=== PATIENT | female | born 1995 | race Caucasian/White ===

== ENCOUNTER 2020-02-21 18:37 | Inpatient (IN) | payer BC ==
[2020-02-21] MEDS ORDERED: DINOPROSTONE 10 MG VAGINAL INSERT.SR PV PRN (18:59)
[2020-02-21] MEDS ORDERED: RINGERS SOLUTION,LACTATED 1,000 ML IV PRN (18:59)
--- NOTE | 2020-02-21 19:15 | Admission Physical ---
Datetime Report Generated by CPN: 02/21/2020 19:15 CURRENT ADMISSION Chief Complaint: Scheduled Induction of Labor Indication for Induction: Post Dates Admit Impression : Postterm, Intrauterine ; Intact Membranes; Induction of Labor Admit Plan: Admit to Unit; Initiate Labor Induction Protocol ALLERGIES Medication Allergies: No Medication Allergies: No Known Allergies (08/05/2019) OBSTETRICAL HISTORY EDC: 02/15/2020 00:00 : 1 Para: 0 Term: 0 : 0 SAB: 0 IAB: 0 Ectopic: 0 Livin Cesareans: 0 VBACs: 0 Multiple Births: 0 Infertility: Yes Current Procedures: Ultrasound; NST Obstetrical History Comments: G1: current MEDICAL HISTORY Hosp/Surgery: Yes Medical History Comments: tachycardia x 6yrs, cholecystectomy, bilateral myringotomy with tubes, tear ducts, tonsillectomy PHYSICAL EXAM General: Normal HEENT: Normal Neurologic: Normal Thyroid: Normal Heart: Normal Lungs: Normal Breast: Deferred Back: Normal Abdomen: Normal Genitourinary Exam: Normal Extremities: Normal DTRs: Normal Pelvic Type: Adequate Vital Signs: Reviewed VAGINAL EXAM Dilatation: 1 Effacement: 0 Station: -2 MEMBRANES Pooling: Negative Membranes: Intact FETUS A EGA: 40.6 Monitoring: External US Presentation: Vertex INFORMED CONSENT Signature: with User ID: [email or web address]
[2020-02-21] MEDS ORDERED: RINGERS SOLUTION,LACTATED 1,000 ML IV ONE (19:30)
[2020-02-21] MEDS ORDERED: DINOPROSTONE 10 MG VAGINAL INSERT.SR ONE ×2 (20:05→22:48)
[2020-02-21 20:09] LABS: ABSOLUTE BASOPHILS # (AUTO) 0.1 10^3/uL (0.0-0.2); ABSOLUTE LYMPHOCYTES (AUTO) 2.4 10^3/uL (0.5-4.7); ABSOLUTE MONOCYTES (AUTO) 0.5 10^3/uL (0.1-1.4); ABSOLUTE NEUT (AUTO) 7.8 10^3/uL (1.7-8.2); BASOPHILS % (AUTO) 0.5 % (0-2); EOSINOPHILS % (AUTO) 0.4 % (0-6); HEMATOCRIT 37.3 % (36.0-47.0); HEMOGLOBIN 12.8 g/dL (12.0-15.5); LYMPHOCYTES % (AUTO) 21.9 % (13-45); MEAN CORPUSCULAR HEMOGLOBIN 31.7 pg (27.0-33.4); MEAN CORPUSCULAR HGB CONC 34.4 g/dL (32.0-36.0); MEAN CORPUSCULAR VOLUME 92 fl (80-97); MONOCYTES % (AUTO) 5.1 % (3-13); PLATELET COUNT 144 10^3/uL (150-450); RED BLOOD COUNT 4.05 10^6/uL (3.72-5.28); RED CELL DISTRIBUTION WIDTH 15.2 % (11.5-14.0); SEGMENTED NEUTROPHILS % (AUTO) 72.1 % (42-78); TOTAL CELLS COUNTED % (AUTO) 100 %; WHITE BLOOD COUNT 10.8 10^3/uL (4.0-10.5)
[2020-02-21 20:13] LABS: APPEARANCE,URINE SLIGHTLY-CLOUDY; BILIRUBIN,URINE NEGATIVE (NEGATIVE); COLOR,URINE YELLOW; GLUCOSE, URINE NEGATIVE (NEGATIVE); KETONES,URINE NEGATIVE (NEGATIVE); LEUKOCYTE ESTERASE,URINE TRACE (NEGATIVE); NITRITE,URINE NEGATIVE (NEGATIVE); PROTEIN,URINE 30 mg/dL (NEGATIVE); URINE SPECIFIC GRAVITY 1.013; UROBILINOGEN,URINE NEGATIVE mg/dL (<2.0)
[2020-02-21 20:27] LABS: URINE AMPHETAMINES SCREEN NEGATIVE; URINE BARBITURATES SCREEN NEGATIVE; URINE BENZODIAZEPINES SCREEN NEGATIVE; URINE COCAINE SCREEN NEGATIVE; URINE MARIJUANA (THC) SCREEN NEGATIVE; URINE METHADONE SCREEN NEGATIVE; URINE PHENCYCLIDINE SCREEN NEGATIVE
[2020-02-21] MEDS ORDERED: ZOLPIDEM TARTRATE 5 MG TABLET ONE (23:05)
[2020-02-21] MEDS ORDERED: DINOPROSTONE 10 MG VAGINAL INSERT.SR PV ONE (23:30)
[2020-02-21] MEDS ORDERED: ZOLPIDEM TARTRATE 5 MG TABLET PO ONE (23:30)
[2020-02-22] MEDS ORDERED: OXYTOCIN/0.9 % SODIUM CHLORIDE 30 UNIT/500 ML RTUINJ ONE (10:02)
[2020-02-22] MEDS ORDERED: LIDOCAINE 1% INJ-PF (10 MG/ML) 30 ML SDV ONE (10:02)
[2020-02-22] MEDS ORDERED: OXYTOCIN 10 UNIT/ML VIAL ONE (10:02)
[2020-02-22] MEDS ORDERED: MISOPROSTOL 0.2 MG TABLET ONE (10:02)
[2020-02-22] MEDS ORDERED: OXYTOCIN/0.9 % SODIUM CHLORIDE 30 UNIT/500 ML RTUINJ IV PRN (10:30)
[2020-02-22] MEDS ORDERED: MAG HYDROX/AL HYDROX/SIMETH SUSP 30 ML UDCUP PO ONE (13:07)
[2020-02-22] MEDS ORDERED: MAG HYDROX/AL HYDROX/SIMETH SUSP 30 ML UDCUP ONE (13:09)
[2020-02-22] MEDS ORDERED: ONDANSETRON HCL INJ/PF 4 MG/2 ML SDV ONE (16:25)
[2020-02-22] MEDS ORDERED: ONDANSETRON HCL INJ/PF 4 MG/2 ML SDV IV ONE (16:25)
[2020-02-22] MEDS ORDERED: EPHEDRINE SULFATE INJ 50 MG/1 ML AMPULE ONE (17:23)
[2020-02-22] MEDS ORDERED: FENTANYL/BUPIVACAINE/NS/PF 300 MCG/150 ML RTUINJ EPI ONE (17:23)
[2020-02-22] MEDS ORDERED: BUPIVACAINE HCL 0.25 % INJ/PF (2.5 MG/1 ML) 30 ML VIAL ONE (17:23)
[2020-02-22] MEDS ORDERED: PROMETHAZINE HCL INJ 25 MG/1 ML VIAL ONE (22:56)
[2020-02-22] MEDS ORDERED: NALBUPHINE HCL INJ 10 MG/1 ML AMPULE ONE (22:57)
[2020-02-23] MEDS ORDERED: PROMETHAZINE HCL 25 MG SUPP.RECT PR PRN (03:18)
[2020-02-23] MEDS ORDERED: DIBUCAINE 1% OINTMENT 28 GM TP PRN (03:18)
[2020-02-23] MEDS ORDERED: OXYTOCIN/0.9 % SODIUM CHLORIDE 30 UNIT/500 ML RTUINJ IV PRN (03:18)
[2020-02-23] MEDS ORDERED: GLYCERIN/WITCH HAZEL LEAF 1 EACH MED..WIPE TP PRN (03:18)
[2020-02-23] MEDS ORDERED: MAGNESIUM HYDROXIDE SUSP 30 ML UDCUP PO PRN (03:18)
[2020-02-23] MEDS ORDERED: NA PHOS,M-B/NA PHOS,DI-BA (ADULT) 133 ML ENEMA PR PRN (03:18)
[2020-02-23] MEDS ORDERED: PROMETHAZINE HCL 25 MG TABLET PO PRN (03:18)
[2020-02-23] MEDS ORDERED: DIPHENHYDRAMINE HCL 25 MG CAPSULE PO PRN (03:18)
[2020-02-23] MEDS ORDERED: ZOLPIDEM TARTRATE 5 MG TABLET PO PRN (03:18)
[2020-02-23] MEDS ORDERED: MEASLES,MUMPS&RUBELLA VACC/PF 0.5 ML VIAL SUBCUT PRN (03:18)
[2020-02-23] MEDS ORDERED: PSEUDOEPHEDRINE HCL 30 MG TABLET PO PRN (03:18)
[2020-02-23] MEDS ORDERED: DIPH/PERTUSS(ACELL)/TETANUS VAC/PF 0.5 ML SYR (>=10YO) IM PRN (03:18)
[2020-02-23] MEDS ORDERED: ACETAMINOPHEN WITH CODEINE #3 TABLET PO PRN ×2 (03:18)
[2020-02-23] MEDS ORDERED: ACETAMINOPHEN 650 MG SUPP.RECT PR PRN (03:18)
[2020-02-23] MEDS ORDERED: BENZOCAINE/MENTHOL AEROSOL SPRAY 56 ML TOP PRN (03:18)
[2020-02-23] MEDS ORDERED: PROMETHAZINE HCL INJ 25 MG/1 ML VIAL IV PRN (03:18)
[2020-02-23] MEDS ORDERED: AMPICILLIN SOD/SULBACTAM 3 GM VIAL IV SCH (03:30)
[2020-02-23] MEDS ORDERED: ACETAMINOPHEN 325 MG TABLET ONE (03:45)
[2020-02-23] MEDS ORDERED: AMPICILLIN SOD/SULBACTAM 3 GM VIAL ONE (03:56)
--- NOTE | 2020-02-23 04:56 | Warning Signs in Babies ---
VOD Warning Signs Datetime Report Generated by [facility]: 02/23/2020 04:56 VOD#[id number] -Warning Signs in Babies: Viewed with Parent(s)/Family (02/21/2020 16:53:Priyanka Resendez RN)
--- NOTE | 2020-02-23 04:57 | Delivery Summary ---
Del Sum A-C Datetime Report Generated by CPN: 02/23/2020 04:57 DELIVERY PERSONNEL DELIVERY PERSONNEL: [id number] Delivery Doctor:: Serene Madrid MD Labor and Delivery Nurse:: Priyanka Resendez RNdistrict engineer Nurse:: Sultana Bond, RNC MATERNAL INFORMATION Delivery Anesthesia: Epidural Medications After Delivery: Pitocin Bolus-Please Comment; Pitocin 30 Units in 500ml NS/D5W Estimated Blood Loss (ml): 200 Maternal Complications: Maternal Fever; Prolonged Second Stage > 2 Hrs Provider Comments: called to pts bedside due to prolonged decel x 8 mintues. pt placed in hands and knees with good recovery. pt repositioned for vacuum placement and delivery facilitated with two applications with one pop off. Delivery accomplished within 15 min of provider arrival. tight nuchal cord noted. infant passed to nursery staff for resuscitation procedures. LABOR SUMMARY EDC: 02/15/2020 00:00 No. Babies in Womb: 1 Attempted: No Labor Anesthesia: Epidural LABOR INFORMATION Reason for Induction: Post Dates Onset of Labor: 02/22/2020 18:23 Complete Dilatation: 02/22/2020 23:37 Cervical Ripening Agents: Cervidil Oxytocin: Induction Group B Beta Strep: negative Antibiotics # of Doses: 0 Steroids Given: None Reason Steroids Not Administered: Not Applicable MEMBRANES Membranes Rupture Method: Artificial Rupture of Membranes: 02/22/2020 10:28 Length of Rupture (hr): 16.52 Amniotic Fluid Color: Clear Amniotic Fluid Amount: Scant Amniotic Fluid Odor: Normal STAGES OF LABOR Stage 1 hr: 5 Stage 1 min: 14 Stage 2 hr: 3 Stage 2 min: 22 Stage 3 hr: 0 Stage 3 min: 2 Total Time in Labor hr: 8 Total Time in Labor min: 38 VAGINAL DELIVERY Episiotomy: None Laceration #1: None Laceration Extension #1: N/A Laceration Repair: Not Applicable Sponge Count Correct: Vaginal Sweep Performed Sharps Count Correct: Yes CSECTION DELIVERY Primary Indication: N/A Secondary Indication: N/A CSection Incidence: N/A Labor: N/A Elective: N/A CSection Incision: N/A BABY A INFORMATION Infant Delivery Date/Time: 02/23/2020 02:59 Method of Delivery: Vaginal Nurse Controlled Delivery: No Born in Route : No : N/A Forceps: N/A Vacuum Extraction: Successful Shoulder Dystocia : No PRESENTATION/POSITION BABY A Presentation: Cephalic Cephalic Presentation: Vertex Vertex Position: Left Occipital Anterior Breech Presentation: N/A PLACENTA INFORMATION BABY A Placenta Delivery Time : 02/23/2020 03:01 Placenta Method of Delivery: Spontaneous Placenta Status: Delivered SCORES BABY A Heart Rate 1 min: >100 bpm Resp Effort 1 min: Absent Reflex Irritability 1 min: No Response Muscle Tone 1 min: Flaccid Color 1 min: Blue/Pale Resuscitation Effort 1 min: Tactile Stimulation; Oxygen; PPV/NCPAP SCORE 1 MIN: 2 Heart Rate 5 min: >100 bpm Resp Effort 5 min: Slow, Irregular Reflex Irritability 5 min: Grimace Muscle Tone 5 min: Flaccid Color 5 min: Body [place], Extremities Blue Resuscitation Effort 5 min: Oxygen; PPV/NCPAP SCORE 5 MIN: 5 Heart Rate 10 min: >100 bpm Resp Effort 10 min: Slow, Irregular Reflex Irritability 10 min: Cough or Sneeze or Pulls Away Muscle Tone 10 min: Some Flexion of Extremities Color 10 min: Completely [place] SCORE 10 MIN: 8 INFANT INFORMATION BABY A Gestational Age at Delivery: 41.1 Gestational Status: Late Term- 41- 41.6 Weeks Infant Outcome : Liveborn Infant Condition : Fair Sex: Female IDENTIFICATION BABY A Infant Verification Date/Time: 02/23/2020 03:14 ID Band Number: [id number] Mother's Name Verified: Yes RN Verifying : D Bellavance RN/Kaitlynn Jaeger BUSINESS OPERATIONS ANALYST WEIGHT/LENGTH BABY A Birthweight (gm): 2651 Weight (lb): 5 Weight (oz): 14 Length (in): 19.75 Infant Length (cm): 50.17 CORD INFORMATION BABY A No. Cord Vessels: 3 Nuchal Cord : Around Neck x1, Loose Cord Blood Taken: Yes-For Eval (Mom's Blood Type - or O+) Suction: Mouth; Nose ASSESSMENT BABY A Skin to Skin: No BABY B INFORMATION : N/A SIGNATURES Signature: with User ID: [email or web address]
[2020-02-23] MEDS: IBUPROFEN 800 MG TABLET PO SCH ×3 (06:32→21:33)
[2020-02-23] MEDS: PRENATAL VITAMIN W DHA CAPSULE PO SCH (09:17)
[2020-02-23] MEDS: DOCUSATE SODIUM 100 MG CAPSULE PO SCH ×2 (09:17→17:48)
[2020-02-23] MEDS: FAMOTIDINE 20 MG TABLET PO SCH ×2 (09:17→21:33)
[2020-02-23] MEDS: SENNOSIDES/DOCUSATE 8.6-50 MG 1 EACH TABLET PO SCH (09:17)
[2020-02-23] MEDS: FERROUS SULFATE 325 MG TABLET PO SCH ×2 (09:17→17:47)
--- NOTE | 2020-02-23 10:38 | PDOC PROGRESS REPORT ---
Subjective-OB Progress Note for:: 02/23/20 Physical Exam (OB) Vital Signs: Temp Pulse Resp BP Pulse Ox 97.5 F 82 16 126/65 H 100 02/23/20 10:06 02/23/20 10:06 02/23/20 10:06 02/23/20 10:06 02/23/20 10:06 Intake & Output 02/22/20 02/23/20 02/24/20 06:59 06:59 06:59 Intake Total 600 Balance 600 Weight 81.5 kg - PIH/Pre-Eclampsia DTR's: 2 + Clonus: Negative Headache: Absent Epigastric Pain: No Visual Changes: No - Lochia Lochia Amount: Moderate 25-50 ml Lochia Color: Rubra/Red - Abdomen Description: Soft Hernia Present: No Bowel Sounds: Normoactive Flatus Presence: Present Stool: No Fundal Description: Firm, Midline Fundal Height: u/u - u/2 Objective-Diagnostic Laboratory: 02/21/20 20:00
[2020-02-24] MEDS: IBUPROFEN 800 MG TABLET PO SCH (05:04)
[2020-02-24 07:00] LABS: HEMATOCRIT 31.8 % (36.0-47.0); HEMOGLOBIN 10.9 g/dL (12.0-15.5); MEAN CORPUSCULAR HEMOGLOBIN 31.8 pg (27.0-33.4); MEAN CORPUSCULAR HGB CONC 34.2 g/dL (32.0-36.0); MEAN CORPUSCULAR VOLUME 93 fl (80-97); PLATELET COUNT 111 10^3/uL (150-450); RED BLOOD COUNT 3.42 10^6/uL (3.72-5.28); RED CELL DISTRIBUTION WIDTH 16.1 % (11.5-14.0); WHITE BLOOD COUNT 13.5 10^3/uL (4.0-10.5)
[2020-02-24 07:59] VITALS: BP 107/68
--- NOTE | 2020-02-24 09:27 | PDOC DISCHARGE SUMMARY ---
Impression - Admit/DC Date/PCP Admission Date/Primary Care Provider: 02/21/20 18:37 Discharge Date: 02/24/20 - Discharge Diagnosis (1) Normal course Is this a current diagnosis for this admission?: Yes (2) Gestational thrombocytopenia without hemorrhage Is this a current diagnosis for this admission?: Yes (3) Is this a current diagnosis for this admission?: Yes (4) Vacuum extraction, delivered, current hospitalization Is this a current diagnosis for this admission?: Yes - Additional Information Resuscitation Status: Full Code Discharge Diet: Regular Discharge Activity: Activity As Tolerated, Pelvic Rest, No tub bath [facility] (Please call A for a 4 week F/U.) Prescriptions: Ibuprofen [Motrin 800 mg Tablet] 800 mg PO Q8HP PRN #60 tablet PRN Reason: Home Medications: Vit No.124/Iron/Folic [ Vitamin Tablet] 1 tab PO DAILY 08/05/19 Promethazine HCl [Phenergan 25 mg Tablet] 25 - 50 mg PO ASDIR PRN 08/05/19 Ibuprofen [Motrin 800 mg Tablet] 800 mg PO Q8HP PRN #60 tablet 02/24/20 HPI Gestational Age: 41.1 Reason(s) for Admission: Induction of Labor Procedures: NST Intrapartum Procedure(s): Vacuum Extraction Complication(s): Laceration-Vaginal Laceration-Degree: 2nd Results Laboratory Results: WBC 13.5 10^3/uL (4.0-10.5) H 02/24/20 06:36 RBC 3.42 10^6/uL (3.72-5.28) L 02/24/20 06:36 Hgb 10.9 g/dL (12.0-15.5) L 02/24/20 06:36 Hct 31.8 % (36.0-47.0) L 02/24/20 06:36 MCV 93 fl (80-97) 02/24/20 06:36 MCH 31.8 pg (27.0-33.4) 02/24/20 06:36 MCHC 34.2 g/dL (32.0-36.0) 02/24/20 06:36 RDW 16.1 % (11.5-14.0) H 02/24/20 06:36 Plt Count 111 10^3/uL (150-450) L 02/24/20 06:36 Lymph % (Auto) 21.9 % (13-45) 02/21/20 20:00 [place] % (Auto) 5.1 % (3-13) 02/21/20 20:00 Eos % (Auto) 0.4 % (0-6) 02/21/20 20:00 Baso % (Auto) 0.5 % (0-2) 02/21/20 20:00 Absolute Neuts (auto) 7.8 10^3/uL (1.7-8.2) 02/21/20 20:00 Absolute Lymphs (auto) 2.4 10^3/uL (0.5-4.7) 02/21/20 20:00 Absolute Monos (auto) 0.5 10^3/uL (0.1-1.4) 02/21/20 20:00 Absolute Eos (auto) 0.0 10^3/uL (0.0-0.6) 02/21/20 20:00 Absolute Basos (auto) 0.1 10^3/uL (0.0-0.2) 02/21/20 20:00 Seg Neutrophils % 72.1 % (42-78) 02/21/20 20:00 Urine Color YELLOW 02/21/20 19:15 Urine Appearance SLIGHTLY-CLOUDY 02/21/20 19:15 Urine pH 6.0 (5.0-9.0) 02/21/20 19:15 Ur Specific [place] 1.013 02/21/20 19:15 Urine Protein 30 mg/dL (NEGATIVE) H 02/21/20 19:15 Urine Glucose (UA) NEGATIVE mg/dL (NEGATIVE) 02/21/20 19:15 Urine Ketones NEGATIVE mg/dL (NEGATIVE) 02/21/20 19:15 Urine Blood SMALL (NEGATIVE) H 02/21/20 19:15 Urine Nitrite NEGATIVE (NEGATIVE) 02/21/20 19:15 Urine Bilirubin NEGATIVE (NEGATIVE) 02/21/20 19:15 Urine Urobilinogen NEGATIVE mg/dL (<2.0) 02/21/20 19:15 Ur Leukocyte Esterase TRACE (NEGATIVE) H 02/21/20 19:15 Urine Ascorbic Acid NEGATIVE (NEGATIVE) 02/21/20 19:15 Urine Opiates Screen NEGATIVE 02/21/20 19:15 Urine Methadone Screen NEGATIVE 02/21/20 19:15 Ur Barbiturates Screen NEGATIVE 02/21/20 19:15 Ur Phencyclidine Scrn NEGATIVE 02/21/20 19:15 Ur Amphetamines Screen NEGATIVE 02/21/20 19:15 U Benzodiazepines Scrn NEGATIVE 02/21/20 19:15 Urine Cocaine Screen NEGATIVE 02/21/20 19:15 U Marijuana (THC) Screen NEGATIVE 02/21/20 19:15 RPR NONREACTIVE (NONREACTIVE) 02/21/20 20:00 SARS-CoV-2 (PCR) NEGATIVE (NEGATIVE) 02/23/20 06:50 Blood Type O POSITIVE 02/21/20 20:00 Antibody Screen NEGATIVE 02/21/20 20:00 Plan Health Concerns: baby sent to [facility] Plan of Treatment: discharge, pt wants to go to [facility] to be with baby Time Spent: Less than 30 Minutes
[2020-02-24] MEDS: SENNOSIDES/DOCUSATE 8.6-50 MG 1 EACH TABLET PO SCH (09:39)
[2020-02-24] MEDS: DOCUSATE SODIUM 100 MG CAPSULE PO SCH (09:39)
[2020-02-24] MEDS: PRENATAL VITAMIN W DHA CAPSULE PO SCH (09:39)
[2020-02-24] MEDS: FAMOTIDINE 20 MG TABLET PO SCH (09:39)
[2020-02-24] MEDS: FERROUS SULFATE 325 MG TABLET PO SCH (09:39)
== END 2020-02-24 11:40 | disposition home or self-care (01) | DRG 806 ==
LOC: LR 18:37 → 2S 02-23 05:55 → MERGE 03-08 16:03
PROVIDERS: ADMIT Obstetrics & Gynecology Gynecology; ATTEND Obstetrics & Gynecology Gynecology
PROC: 10D07Z6 Extraction of Products of Conception, Vacuum, Via Natural or Artificial Opening (ICD-10-PCS; principal; 2020-02-21)
PROC: 0KQM0ZZ Repair Perineum Muscle, Open Approach (ICD-10-PCS; 2020-02-21)
PROC: 3E033VJ Introduction of Other Hormone into Peripheral Vein, Percutaneous Approach (ICD-10-PCS; 2020-02-21)
DX: O48.0 Post-term pregnancy (principal); O99.12 Other diseases of the blood and blood-forming organs and certain disorders involving the immune mechanism complicating childbirth; Z37.0 Single live birth; O75.2 Pyrexia during labor, not elsewhere classified; D69.6 Thrombocytopenia, unspecified; O70.1 Second degree perineal laceration during delivery; O69.81X0 Labor and delivery complicated by cord around neck, without compression, not applicable or unspecified; Z3A.41 41 weeks gestation of pregnancy
CPT/HCPCS: 1967; 36415; 80307; 81005; 85025; 85027; 86592; 86850; 86900; 86901; 87635; 99465; C9803; J0295; J2300; J2405; J2550; J2590; J3010; J3490

== ENCOUNTER 2020-05-15 18:30 | Emergency (ER) | payer BC ==
[2020-05-15] MEDS ORDERED: ONDANSETRON HCL INJ/PF 4 MG/2 ML SDV IV ONE (19:23)
[2020-05-15] MEDS ORDERED: NORMAL SALINE 1000 ML 1,000 ML IV ONE (19:23)
--- NOTE | 2020-05-15 19:25 | ER Document Report ---
ED Medical Screen (RME) - General Chief Complaint: Nausea/Vomiting Stated Complaint: NAUSEA,VOMITING,HEADACHE Time Seen by Provider: 05/15/20 19:10 Notes: Patient is a 25-year-old female who presents emergency department with a chief complaint of nausea, vomiting, and mid lower abdominal pain. Patient states that her symptoms started this morning at 8:30 AM. Patient states that she has been vomiting since then. Patient continues to be nauseous. Patient states that she just had a baby a couple months ago. Patient is currently breast-f eeding. Denies any exposure to COVID-19. Exam: Tachycardic. I have greeted and performed a rapid initial assessment of this patient. A comprehensive ED assessment and evaluation of the patient, analysis of test results and completion of medical decision making process will be conducted by an additional ED providers. TRAVEL OUTSIDE OF THE [place] IN LAST 30 DAYS: No - Related Data Allergies/Adverse Reactions: No Known Allergies Allergy (Verified 02/21/20 18:58) Past Medical History Pulmonary Medical History: Reports: Hx Asthma Psychiatric Medical History: Denies: Hx Depression Past Surgical History: Reports: Hx Cholecystectomy, Hx Tonsillectomy Physical Exam - Vital signs Vitals: Temp Pulse Resp BP Pulse Ox 98.8 F 116 H 19 97/61 L 100 05/15/20 19:05 05/15/20 19:05 05/15/20 19:05 05/15/20 19:05 05/15/20 19:05 Course - Vital Signs Vital signs: Temp Pulse Resp BP Pulse Ox 98.8 F 116 H 19 97/61 L 100 05/15/20 19:05 05/15/20 19:05 05/15/20 19:05 05/15/20 19:05 05/15/20 19:05 - Laboratory Result Diagrams: 05/15/20 19:16 05/15/20 19:16
[2020-05-15 19:49] LABS: HEMOGLOBIN 16.3 g/dL (12.0-15.5); MEAN CORPUSCULAR HEMOGLOBIN 29.9 pg (27.0-33.4); MEAN CORPUSCULAR HGB CONC 32.5 g/dL (32.0-36.0); MEAN CORPUSCULAR VOLUME 92 fl (80-97); PLATELET COUNT 249 10^3/uL (150-450); RED BLOOD COUNT 5.44 10^6/uL (3.72-5.28); RED CELL DISTRIBUTION WIDTH 13.4 % (11.5-14.0); WHITE BLOOD COUNT 14.5 10^3/uL (4.0-10.5)
[2020-05-15 19:53] LABS: ALKALINE PHOSPHATASE 100 U/L (38-126); APPEARANCE,URINE CLEAR; ASPARTATE AMINO TRANSFERASE 43 U/L (14-36); BILIRUBIN,DIRECT 0.5 mg/dL (0.0-0.4); BILIRUBIN,TOTAL 0.8 mg/dL (0.2-1.3); BILIRUBIN,URINE NEGATIVE (NEGATIVE); BLOOD UREA NITROGEN 13 mg/dL (7-20); CALCIUM 10.4 mg/dL (8.4-10.2); COLOR,URINE STRAW; GLUCOSE 97 mg/dL (75-110); GLUCOSE, URINE NEGATIVE (NEGATIVE); KETONES,URINE 80 mg/dL (NEGATIVE); LEUKOCYTE ESTERASE,URINE NEGATIVE (NEGATIVE); NITRITE,URINE NEGATIVE (NEGATIVE); POTASSIUM 5.7 mmol/L (3.6-5.0); PROTEIN,URINE >=500 mg/dL (NEGATIVE); TOTAL PROTEIN 9.7 g/dL (6.3-8.2); URINE SPECIFIC GRAVITY 1.015; UROBILINOGEN,URINE NEGATIVE mg/dL (<2.0)
[2020-05-15 19:58] LABS: ABSOLUTE MONOCYTES # (MANUAL) 0.1 10^3/uL (0.1-1.4); BASOPHILS % (MANUAL) 0 % (0-2); CHLORIDE 101 mmol/L (98-107); EOSINOPHILS % (MANUAL) 0 % (0-6); LYMPHOCYTES % (MANUAL) 6 % (13-45); MONOCYTES % (MANUAL) 1 % (3-13); SEGMENTED NEUTROPHILS % (MAN) 92 % (42-78); TOTAL CELLS COUNTED 100
[2020-05-15 19:59] LABS: PLATELET COMMENT ADEQUATE; TEAR DROP CELLS SLIGHT
[2020-05-15 20:14] LABS: ALBUMIN 6.2 g/dL (3.5-5.0)
[2020-05-15 20:17] LABS: CARBON DIOXIDE 8 mmol/L (22-30)
[2020-05-15 20:22] LABS: ANION GAP 31 (5-19)
[2020-05-15] MEDS ORDERED: DIPHENHYDRAMINE HCL 50 MG/ML VIAL IV ONE (20:46)
[2020-05-15] MEDS ORDERED: RINGERS SOLUTION,LACTATED 1,000 ML IV ONE ×2 (20:47→23:12)
--- NOTE | 2020-05-15 20:49 | ER Document Report ---
ED GI/ - General Chief Complaint: Abdominal Pain Stated Complaint: NAUSEA,VOMITING,HEADACHE Time Seen by Provider: 05/15/20 19:10 Notes: Patient is a 25-year-old female comes emergency department for chief complaint of nausea, vomiting and generalized abdominal cramping. Patient states she started feeling poorly and nauseated this morning and started vomiting at about 8:30 AM, she states she has been vomiting all day since then. She states she was trying to pump for breast-feeding at the same time but became concerned because she continued to vomit and her breast milk seem to be reducing. She denies diarrhea, fever, cough, shortness of breath, flank pain, dysuria, vaginal bleeding or discharge. Past medical history of cholecystectomy, tonsillectomy, asthma, she takes no daily medications. She denies alcohol, smoking, recreatio nal drugs. TRAVEL OUTSIDE OF THE [place] IN LAST 30 DAYS: No - Related Data Allergies/Adverse Reactions: No Known Allergies Allergy (Verified 02/21/20 18:58) Past Medical History - General Information source: Patient - Social History Smoking Status: Never Smoker Frequency of alcohol use: None Drug Abuse: None Lives with: Family Family History: Reviewed & Not Pertinent Pulmonary Medical History: Reports: Hx Asthma Psychiatric Medical History: Denies: Hx Depression Past Surgical History: Reports: Hx Cholecystectomy, Hx Tonsillectomy Review of Systems - Review of Systems Constitutional: No symptoms reported EENT: No symptoms reported Cardiovascular: No symptoms reported Respiratory: No symptoms reported Gastrointestinal: See HPI Genitourinary: No symptoms reported Female Genitourinary: No symptoms reported Musculoskeletal: No symptoms reported Skin: No symptoms reported Hematologic/Lymphatic: No symptoms reported Neurological/Psychological: No symptoms reported Physical Exam - Vital signs Vitals: Temp Pulse Resp BP Pulse Ox 98.8 F 116 H 19 97/61 L 100 05/15/20 19:05 05/15/20 19:05 05/15/20 19:05 05/15/20 19:05 05/15/20 19:05 - Notes Notes: GENERAL: Alert, interacts well. Mildly pale and ill appearing HEAD: Normocephalic, atraumatic. EYES: Pupils equal, round, and reactive to light. Extraocular movements intact. ENT: Oral mucosa very dry, tongue midline. Oropharynx unremarkable. Airway patent. NECK: Full range of motion. Supple. Trachea midline. No lymphadenopathy. LUNGS: Clear to auscultation bilaterally, no wheezes, rales, or rhonchi. No respiratory distress. Non-tender chest wall. HEART: Tachycardia, normal rhythm, no murmur ABDOMEN: Soft, non-tender. Non-distended. Bowel sounds present in all 4 quadrants. EXTREMITIES: Moves all 4 extremities spontaneously. No edema, normal radial and dorsalis pedis pulses bilaterally. No cyanosis. BACK: no cervical, thoracic, lumbar midline tenderness. No saddle anesthesia, normal distal neurovascular exam. Moves all extremities in full range of motion. NEUROLOGICAL: Alert and oriented x3. Normal speech. Cranial nerves II through XII grossly intact. Strength 5/5 in all extremities. PSYCH: Normal affect, normal mood. SKIN: pale but warm Course - Re-evaluation Re-evalutation: Patient with very dry mucous membranes, tachycardic, slightly ill-appearing but otherwise alert, talkative, and has no complaints on my evaluation. Abdomen is soft and benign. Patient does not have a fever. Work-up is pending, patient has received normal saline bolus. CBC shows my leukocytosis with elevation of neutrophils, elevated hemoglobin suggesting dehydration. Urinalysis shows elevated specific gravity, ketones. Chemistry shows marked metabolic acidosis with bicarbonate of 8, anion gap is elevated, however blood glucose is normal. Potassium is 5.7. LFTs are slightly elevated. Patient stating she is wanting to go home after I discussed initial labs and recommended admission for metabolic acidosis and vomiting. Patient given lactated Ringer's, p.o. Pepcid, Maalox, lidocaine, Zofran. Afterwards patient felt significantly better, states she feels much improved and she wants to go home. Chemistry rechecked and bicarbonate is still 8 even now with the rem aining labs have normalized. Additional lactated Ringer was given and venous blood gas was obtained. pH is 7.11, bicarbonate is 8, CO2 is low. Patient still noted to have significant metabolic acidosis. Patient still mildly tachycardic and intermittently more tachycardic. I discussed with patient. I discussed with Dr. Guy. Again I recommended admission to the hospital, however patient requesting that if she can eat and drink that she would still prefer to go home. I asked a lot of de tails, discovered that patient has a limited almost everything from her diet in an attempt to breast-feed her baby who has reported food allergies. Patient is basically on a keto diet with only some meats and some vegetables that she is eating along with her breast-feeding. I suspect this is the cause of her metabolic acidosis and eventually caused her vomiting today. I discussed this in detail with patient. Patient states she plans to stop breast-feeding as result, she will change her diet, she will start with bland food, but she would still prefer to be discharged and return if she worsens. She states she used to be on a beta-ethan and always has tachycardia, she is being followed by cardiology for this and states she is not symptomatic with her tachycardia, she states that she become symptomatic she supposed to call her rn intern to be placed on a beta-ethan. Patient is very educated in regards to this. Again discussed details with Dr. Guy. Patient to be discharged since she tolerated PO (ate crackers and drank) with strict return precautions. Stable and well-appearing at time of discharge. - Vital Signs Vital signs: Temp Pulse Resp BP Pulse Ox 98.3 F 125 H 20 126/76 H 100 05/16/20 04:21 05/16/20 04:21 05/16/20 04:21 05/16/20 04:21 05/16/20 04:21 - Laboratory Result Diagrams: 05/15/20 19:16 05/15/20 22:21 Laboratory results interpreted by me: 05/15/20 05/15/20 05/15/20 19:16 19:16 19:16 WBC 14.5 H RBC 5.44 H Hgb 16.3 H Hct 50.0 H Seg Neuts % (Manual) 92 H Lymphocytes % (Manual) 6 L Monocytes % (Manual) 1 L Abs Neuts (Manual) 13.3 H VBG pH VBG pCO2 VBG HCO3 Potassium 5.7 H Carbon Dioxide 8 L* Anion Gap 31 H Calcium 10.4 H Direct Bilirubin 0.5 H AST 43 H ALT 36 H Total Protein 9.7 H Albumin 6.2 H Urine Protein >=500 H Urine Ketones 80 H Urine Blood SMALL H 05/15/20 05/16/20 22:21 01:00 WBC RBC Hgb Hct Seg Neuts % (Manual) Lymphocytes % (Manual) Monocytes % (Manual) Abs Neuts (Manual) VBG pH 7.11 L* VBG pCO2 28.2 L VBG HCO3 8.8 L Potassium 5.1 H Carbon Dioxide 8 L* Anion Gap 24 H Calcium Direct Bilirubin AST ALT Total Protein Albumin Urine Protein Urine Ketones Urine Blood - EKG Interpretation by Me Additional EKG results interpreted by me: EKG shows sinus tachycardia at a rate of 124, normal axis, QTC of 448, no T wave inversions or ST segment changes in consecutive leads Discharge - Discharge Clinical Impression: Dehydration, Metabolic acidosis Vomiting Qualifiers: Vomiting type: unspecified Vomiting Intractability: non-intractable Nausea presence: with nausea Qualified Code(s): R11.2 - Nausea with vomiting, unspecified Condition: Stable Disposition: HOME, SELF-CARE Additional Instructions: You have metabolic acidosis (acidic blood). This appears to be what is causing you to feel sick and vomit. This is most likely caused by your recent diet. Please start with bland diet and incorporate carbohydrates (toast, rice, mashed potatoes, etc.), drink plenty of fluids, take medications as prescribed, and rest. Follow close with primary care for recheck and additional evaluation. Return if you worsen in any way including passing out, return to vomiting, confusion, dizziness, or any other concerning or worsening symptoms. Prescriptions: Famotidine [Pepcid 20 mg Tablet] 20 mg PO BID #12 tablet Ondansetron [Zofran Odt 4 mg Tablet] 1 - 2 tab PO Q4H PRN #15 tab.rapdis PRN Reason: For Nausea/Vomiting
--- NOTE | 2020-05-15 21:57 | EKG REPORT ---
SEVERITY:- ABNORMAL ECG - SINUS TACHYCARDIA DIFFUSE NONSPECIFIC ST-T CHANGES : Confirmed by: Torito Angela MD 15-May-2020 21:57:13
[2020-05-15] MEDS ORDERED: FAMOTIDINE 20 MG TABLET PO ONE (21:59)
[2020-05-15 23:01] LABS: ALBUMIN 4.8 g/dL (3.5-5.0); ALKALINE PHOSPHATASE 78 U/L (38-126); ASPARTATE AMINO TRANSFERASE 34 U/L (14-36); BILIRUBIN,DIRECT 0.3 mg/dL (0.0-0.4); BILIRUBIN,TOTAL 0.6 mg/dL (0.2-1.3); BLOOD UREA NITROGEN 10 mg/dL (7-20); CALCIUM 8.9 mg/dL (8.4-10.2); GLUCOSE 83 mg/dL (75-110); POTASSIUM 5.1 mmol/L (3.6-5.0); TOTAL PROTEIN 7.5 g/dL (6.3-8.2)
[2020-05-15 23:06] LABS: CHLORIDE 106 mmol/L (98-107)
[2020-05-15 23:17] LABS: ANION GAP 24 (5-19); CARBON DIOXIDE 8 mmol/L (22-30)
[2020-05-15] MEDS ORDERED: LIDOCAINE 2% VISCOUS SOLN 15 ML UDCUP PO ONE (23:28)
[2020-05-15] MEDS ORDERED: MAG HYDROX/AL HYDROX/SIMETH SUSP 30 ML UDCUP PO ONE (23:28)
[2020-05-15] MEDS ORDERED: METOCLOPRAMIDE HCL INJ/PF 10 MG/2 ML SDV IV ONE (23:28)
[2020-05-16 01:09] LABS: VENOUS BLOOD BASE EXCESS -19.4 mmol/L; VENOUS BLOOD HCO3 8.8 mmol/L (20-32); VENOUS BLOOD PCO2 28.2 mmHg (35-63)
[2020-05-16 01:33] LABS: VENOUS BLOOD PH 7.11 (7.30-7.42)
[2020-05-16] MEDS ORDERED: ONDANSETRON ODT 4 MG TAB (6 TAB/ER DISP) PO PRN (03:44)
[2020-05-16 04:39] VITALS: BP 126/76
== END 2020-05-16 04:26 | disposition home or self-care (01) ==
LOC: ER 18:30
DX: R11.2 Nausea with vomiting, unspecified (principal); E87.2 Acidosis; E86.0 Dehydration; R10.84 Generalized abdominal pain; R00.0 Tachycardia, unspecified; D72.828 Other elevated white blood cell count; R79.89 Other specified abnormal findings of blood chemistry; J45.909 Unspecified asthma, uncomplicated; Z90.49 Acquired absence of other specified parts of digestive tract
CPT/HCPCS: 93005; 99284; 96361; 96374; 96375; 36415; 83690; 85025; 81025; 87070; 80053; 81001; 82803; 93010; J1200; J3490; J2765; J2405; J7030; J7120